=== PATIENT | male | born 1965 | race Caucasian/White ===

== ENCOUNTER 2019-01-06 09:11 | Inpatient (IN) ==
[2019-01-06] MEDS ORDERED: ASPIRIN PO ONE (09:18)
[2019-01-06] MEDS ORDERED: NITROGLYCERIN SL ONE (09:35)
[2019-01-06] MEDS ORDERED: ZOFRAN IV ONE (09:41)
[2019-01-06 10:10] LABS: BASO# 0.04 X1000 (0.0-0.2); BASO% 0.3 % (0.0-0.8); EOS# 0.28 X1000 (0.0-0.7); EOS% 1.9 % (0.0-10.0); HEMATOCRIT 34.8 % (42.0-52.0); HEMOGLOBIN 11.3 g/dL (14.0-18.0); IMM GRAN# 0.14 X1000 (0.0-0.04); LYMPH# 0.72 X1000 (1.2-3.4); MCH 28.9 PG (27-31); MCHC 32.5 g/dL (33-37); MONO# 0.54 X1000 (0.11-0.59); MONO% 3.7 % (1.7-9.3); MPV 10.6 FL (7.4-10.4); NEUT% 88.1 % (42.2-75.2); PLT 233 X1000 (130-400); RBC 3.91 XMIL (4.7-6.1); RDW 14.4 % (11.5-14.5); WBC 14.52 X1000 (4.8-10.8)
--- NOTE | 2019-01-06 10:11 | Diag Imaging Result Doc PS360 ---
EXAM: CHEST-2 VIEWS - 01/06/2019 HISTORY: cp/sob TECHNIQUE: Chest two views COMPARISON: 06/09/2018 FINDINGS: Heart size is normal. There is mild tortuosity of the thoracic aorta. There are apparent COPD changes. There is increased prominence of perihilar markings on the right which may relate to COPD exacerbation and/or bronchopneumonia. There is no dense consolidation, pleural effusion, or pneumothorax identified. IMPRESSION: Increased prominence of perihilar markings on the right. This may relate to COPD exacerbation and/or bronchopneumonia. Electronically signed by Larry Caldwell 01/06/2019 10:09 AM
[2019-01-06] MEDS ORDERED: DUONEB (A & A) INH ONE (10:18)
--- NOTE | 2019-01-06 10:24 | EKG Report ---
Test Performed on : 01/06/2019 09:20:59 AM Test Reason : cp/sob Blood Pressure : / mmHG Vent. Rate : 065 BPM Atrial Rate : 065 BPM P-R Int : 136 ms QRS Dur : 150 ms QT Int : 428 ms P-R-T Axes : 071 079 058 degrees QTc Int : 445 ms Normal sinus rhythm. Right bundle branch block Abnormal ECG When compared with ECG of 09-JUN-2018 17:56, Right bundle branch block is now present Unconfirmed Result
[2019-01-06 10:27] LABS: AGAP 10; ALBUMIN 2.9 g/dL (3.5-5.0); ALKALINE PHOSPHATASE 63 U/L (32-122); BUN 18 mg/dL (8-22); CALCIUM 8.8 mg/dL (8.8-10.2); CHLORIDE 108 mmol/L (98-107); CK PROFILE 67 U/L (24-204); COSMO 289; CREATININE 0.8 mg/dL (0.7-1.2); ESTIMATED GFR > 60; GLUCOSE 133 mg/dL (70-104); GOT 20 U/L (10-34); GPT 29 U/L (10-44); INR 0.95; POTASSIUM 4.4 mmol/L (3.5-5.1); PROTIME 13.2 Seconds (11.0-16.0); PTT 31.2 Seconds (22.3-41.8); SODIUM 143 mmol/L (136-145); TCO2 25 mmol/L (25-35); TOTAL BILIRUBIN < 0.15 mg/dL (0.20-1.00); TOTAL PROTEIN 4.9 g/dL (6.3-8.3)
[2019-01-06] MEDS ORDERED: ROCEPHIN 1 GM in NS 50 ML IV ONE (11:02)
[2019-01-06] MEDS ORDERED: ZITHROMAX PO ONE (11:03)
[2019-01-06] MEDS: DUONEB (A & A) INH SCH ×4 (12:00→23:20)
[2019-01-06] MEDS ORDERED: ZOFRAN IV PRN (12:26)
[2019-01-06] MEDS ORDERED: DUONEB (A & A) INH PRN (12:26)
[2019-01-06] MEDS ORDERED: TYLENOL PO PRN (12:26)
--- NOTE | 2019-01-06 13:28 | HISTORY AND PHYSICAL ---
PRIMARY CARE PROVIDER: None. CHIEF COMPLAINT: Chest pain, shortness of breath for 3 days. HISTORY OF PRESENT ILLNESS: Mr. Fernandez is a 53-year-old male who reports a past medical history of [place] years ago, who received no stents. He claims it was secondary to arthritis flare. Arthritis, hypertension, constipation, COPD on imaging, reports bilateral lower extremity edema for years, however, not currently edematous, fall off of a roof from about 55 feet, where he received several orthopedic type surgeries on lower and upper extremities. Reported for 3 days, chest pain and shortness of breath that was unlike his [place] years ago. There was no fever. Positive for chills. Positive for cough. He woke up yesterday and vomited after he had been sleeping. He has had heartburn for 2 days. Also, reports history of numerous pneumonias in the past. This chest pain was pressure-like on the left side, but again not like his [place] pain. He came to the ED to be evaluated, was found to have COPD and bronchopneumonia. First set of cardiac enzymes were negative. EKG does not show any ST-T wave changes. We will admit him to [facility] Telemetry. Continue treatment for COPD and bronchopneumonia. PAST MEDICAL HISTORY: 1. [place]. 2. Arthritis. 3. Hypertension. 4. New diagnosis of COPD. 5. Constipation. 6. Reported bilateral lower extremity edema for years. PAST SURGICAL HISTORY: Several Orthopedics on bilateral upper and lower extremities. REVIEW OF SYSTEMS: Twelve-point review of systems completely negative except for those mentioned in HPI. FAMILY HISTORY: Mother with cervical cancer from talcum powder. 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 He quit smoking a couple months ago. He was a 1 pack per day smoker for 40 years. He is not . He does have children. No alcohol or illicit drug use. HOME MEDICATIONS: None. ALLERGIES: None. PHYSICAL EXAMINATION: VITAL SIGNS: Temperature is 97.4 degrees, heart rate 67, respirations 16, blood pressure 128/89, O2 is 98% on room air. GENERAL: Mr. Patel is a 53-year-old male who is lying in the bed flat, in no acute distress. HEENT: Atraumatic, normocephalic. PERRL. NECK: Supple. Trachea midline. CARDIOVASCULAR: S1, S2 appreciated. No murmurs, gallops, or rubs noted. RESPIRATORY: Lung sounds clear bilaterally. GASTROINTESTINAL: Soft, nontender, nondistended. Positive bowel sounds 4 quadrants. EXTREMITIES: Lower extremities negative for edema. I could not assess pedal pulses secondary to the patient having boots on. NEUROLOGIC: No focal deficits noted. LABORATORY DATA: White count 14, hemoglobin and hematocrit 11 and 34. Sodium 143, potassium 4.4, BUN 18, creatinine 0.8. Troponin less than 0.010. DIAGNOSTIC DATA: Chest x-ray COPD and bronchopneumonia. EKG normal sinus rhythm with a right bundle branch, 65 beats per minute. ASSESSMENT AND PLAN: 1. Bronchopneumonia. We will continue with IV antibiotics, bronchodilators, supplemental O2, aggressive pulmonary toilet. 2. Chronic obstructive pulmonary disease. Does not appear to be an exacerbation, if he is it is mild. Again, we will continue with supplemental O2, bronchodilators, aggressive pulmonary toilet, IV antibiotics. 3. Chest pain. Does not appear to be cardiac in nature. First set of cardiac enzymes were negative. We will continue to trend 2 more sets. He does state that the left-sided pressure was not like his previous [place]. 4. Arthritis. 5. Hypertension not on any home medications. 6. Constipation. 7. Complaint of bilateral lower extremity edema for years. However, he has no evidence of edema now. 8. Further recommendation to follow physician evaluation, laboratory and diagnostic data. Dictated by KATHERYN Briscoe for Russell Fonseca MD cc: Russell Fonseca MD
[2019-01-06] MEDS: NS 1,000 ML IV SCH (16:07)
--- NOTE | 2019-01-06 19:36 | HISTORY AND PHYSICAL ---
ADDENDUM: Patient presented to the hospital with increased cough, congestion, felt as though he had the flu. He was having some chest pain but notes that it was worse when he took a deep breath. He was diagnosed with pneumonia. We are going to admit him to the hospital, place him on antibiotics, breathing treatments, oxygen and we will follow. Please see full note. cc: Russell Fonseca MD
[2019-01-06] MEDS: SYMBICORT 160/4.5 MICROGM INHALER INH SCH (20:02)
[2019-01-06] MEDS: NICODERM PATCH TD PRN (21:48)
[2019-01-07] MEDS ORDERED: FLU VACCINE IM ONE (01:33)
[2019-01-07] MEDS ORDERED: PNEUMOVAX 23 IM ONE (01:34)
[2019-01-07] MEDS: DUONEB (A & A) INH SCH ×6 (03:23→23:57)
[2019-01-07] MEDS: NS 1,000 ML IV SCH ×2 (04:46→17:55)
[2019-01-07 05:46] LABS: BASO# 0.02 X1000 (0.0-0.2); BASO% 0.2 % (0.0-0.8); EOS% 2.2 % (0.0-10.0); HEMATOCRIT 31.8 % (42.0-52.0); HEMOGLOBIN 10.1 g/dL (14.0-18.0); IMM GRAN# 0.09 X1000 (0.0-0.04); LYMPH# 0.93 X1000 (1.2-3.4); LYMPH% 10.2 % (20.5-51.1); MCH 28.5 PG (27-31); MCHC 31.8 g/dL (33-37); MCV 89.6 FL (81-99); MONO# 0.57 X1000 (0.11-0.59); MONO% 6.2 % (1.7-9.3); MPV 10.1 FL (7.4-10.4); NEUT# 7.32 X1000 (1.4-6.5); NEUT% 80.2 % (42.2-75.2); PLT 207 X1000 (130-400); RBC 3.55 XMIL (4.7-6.1); RDW 14.4 % (11.5-14.5); WBC 9.13 X1000 (4.8-10.8)
[2019-01-07 06:19] LABS: AGAP 10; ALBUMIN 2.4 g/dL (3.5-5.0); ALKALINE PHOSPHATASE 54 U/L (32-122); BUN 22 mg/dL (8-22); CALCIUM 8.5 mg/dL (8.8-10.2); CHLORIDE 111 mmol/L (98-107); COSMO 293; CREATININE 0.7 mg/dL (0.7-1.2); ESTIMATED GFR > 60; GLUCOSE 148 mg/dL (70-104); GOT 13 U/L (10-34); GPT 21 U/L (10-44); POTASSIUM 3.3 mmol/L (3.5-5.1); SODIUM 144 mmol/L (136-145); TCO2 23 mmol/L (25-35); TOTAL BILIRUBIN < 0.15 mg/dL (0.20-1.00); TOTAL PROTEIN 4.8 g/dL (6.3-8.3)
[2019-01-07] MEDS: SYMBICORT 160/4.5 MICROGM INHALER INH SCH ×2 (08:12→20:09)
--- NOTE | 2019-01-07 08:17 | Diag Imaging Result Doc PS360 ---
EXAM: CHEST-PORTABLE HISTORY: short of breath TECHNIQUE: Single view of the chest was performed portably. COMPARISON: 01/06/2019 FINDINGS: Heart size is within normal limits. There is a less optimal inspiratory result. There are increasing bilateral alveolar infiltrates suspicious for worsening bilateral pneumonia. No pleural effusions. No pneumothorax is appreciated. IMPRESSION: Worsening bilateral infiltrates suspicious for bilateral pneumonia. Electronically signed by Renetta Way 01/07/2019 8:15 AM
[2019-01-07] MEDS ORDERED: KLOR-CON PO ONE (08:36)
[2019-01-07] MEDS: ZITHROMAX PO SCH (09:34)
[2019-01-07] MEDS: ROCEPHIN 1 GM in NS 50 ML IV SCH (11:05)
[2019-01-07] MEDS ORDERED: PRINIVIL PO ONE (18:39)
--- NOTE | 2019-01-07 21:32 | EKG Report ---
Test Performed on : 01/07/2019 9:24:47 PM Test Reason : HBP Blood Pressure : / mmHG Vent. Rate : 074 BPM Atrial Rate : 074 BPM P-R Int : 132 ms QRS Dur : 142 ms QT Int : 410 ms P-R-T Axes : 057 069 048 degrees QTc Int : 455 ms Normal sinus rhythm. Possible Left atrial enlargement Right bundle branch block Abnormal ECG When compared with ECG of 06-JAN-2019 09:20, (Unconfirmed) No significant change was found Unconfirmed Result
[2019-01-07] MEDS: NORCO-7.5 PO PRN (21:37)
--- NOTE | 2019-01-07 23:00 | PROGRESS NOTE ---
DATE: 01/07/2019 SUBJECTIVE: The patient notes that his chest pain has resolved. His shortness of breath is improving. He notes that his cough is improving. He is actually starting to feel better. OBJECTIVE: Temperature 98, pulse 78, respiratory rate 18, BP 155/87.General: The patient is awake, currently in mild respiratory distress. Very pleasant to talk with. HEENT: Normocephalic. Neck supple. Cardiovascular: Regular rate. Chest: Minimal wheezing, much improvement. Good air movement. Abdomen soft, nondistended. Extremities: Moves all extremities. Neurologic: No changes. ASSESSMENT: 1. Pneumonia. 2. Chronic obstructive pulmonary disease with exacerbation. 3. Leukocytosis, resolved. 4. Hypokalemia. 5. Chronic arthritis. 6. Hypertension. 7. Constipation. PLAN: We are going to continue the patient on azithromycin and Rocephin. Replace potassium. Hopefully his symptoms will continue to improve and he can discharge home tomorrow. cc: Russell Fonseca MD
[2019-01-08] MEDS: DUONEB (A & A) INH SCH ×5 (04:15→19:06)
[2019-01-08] MEDS: NORCO-7.5 PO PRN ×3 (04:59→20:16)
[2019-01-08 05:27] LABS: HEMATOCRIT 32.7 % (42.0-52.0); HEMOGLOBIN 10.6 g/dL (14.0-18.0); MCH 28.7 PG (27-31); MCHC 32.4 g/dL (33-37); MCV 88.6 FL (81-99); RBC 3.69 XMIL (4.7-6.1); RDW 13.9 % (11.5-14.5); WBC 7.41 X1000 (4.8-10.8)
[2019-01-08] MEDS: NS 1,000 ML IV SCH (05:39)
[2019-01-08] MEDS: PRINIVIL PO SCH ×2 (05:39→09:30)
[2019-01-08] MEDS: NICODERM PATCH TD PRN (05:41)
[2019-01-08 05:48] LABS: AGAP 9; ALBUMIN 2.3 g/dL (3.5-5.0); ALKALINE PHOSPHATASE 59 U/L (32-122); BUN 12 mg/dL (8-22); CALCIUM 8.3 mg/dL (8.8-10.2); CHLORIDE 108 mmol/L (98-107); COSMO 279; CREATININE 0.7 mg/dL (0.7-1.2); ESTIMATED GFR > 60; GLUCOSE 99 mg/dL (70-104); GOT 16 U/L (10-34); GPT 24 U/L (10-44); MAGNESIUM 1.3 mg/dL (1.5-2.7); POTASSIUM 3.8 mmol/L (3.5-5.1); SODIUM 140 mmol/L (136-145); TCO2 23 mmol/L (25-35); TOTAL BILIRUBIN < 0.15 mg/dL (0.20-1.00)
[2019-01-08] MEDS ORDERED: APRESOLINE IV ONE (06:56)
[2019-01-08] MEDS ORDERED: MAGNESIUM SULFATE 2 GM/S.W.I. 2 GM/50 ML IVPB IV ONE (07:15)
[2019-01-08] MEDS: SYMBICORT 160/4.5 MICROGM INHALER INH SCH ×2 (08:32→19:06)
[2019-01-08] MEDS: APRESOLINE PO SCH ×2 (09:25→20:17)
[2019-01-08] MEDS: ZITHROMAX PO SCH (09:25)
[2019-01-08] MEDS: ROCEPHIN 1 GM in NS 50 ML IV SCH (11:00)
--- NOTE | 2019-01-08 13:40 | Diag Imaging Result Doc PS360 ---
EXAM: CHEST-2 VIEWS HISTORY: chest pain TECHNIQUE: Two views COMPARISON: 01/07/2019 FINDINGS: The lungs are well expanded. The heart is not enlarged. The vessels are not distended. The prior infiltrates are slightly less pronounced. No pleural effusions. IMPRESSION: Mild interval improvement Electronically signed by Fidel Acosta 01/08/2019 1:38 PM
--- NOTE | 2019-01-08 14:33 | EKG Report ---
Test Performed on : 01/08/2019 11:34:24 AM Test Reason : chest pain Blood Pressure : / mmHG Vent. Rate : 080 BPM Atrial Rate : 080 BPM P-R Int : 132 ms QRS Dur : 142 ms QT Int : 422 ms P-R-T Axes : 071 079 057 degrees QTc Int : 486 ms Sinus rhythm. with occasional premature ventricular complexes. Right bundle branch block Abnormal ECG When compared with ECG of 07-JAN-2019 21:24, (Unconfirmed) premature ventricular complexes. are now present Unconfirmed Result
--- NOTE | 2019-01-08 22:41 | PROGRESS NOTE ---
DATE: 01/08/2019 SUBJECTIVE: Patient notes that he is still having some cough and congestion. He had elevated blood pressure last night and felt as though his heart has been racing at times. He denies any fevers or chills. PHYSICAL EXAMINATION: Vital signs: Temperature 97.8, pulse 73, BP 163/114. General: Patient is in mild respiratory distress, pleasant to talk with. HEENT: Normocephalic. Neck: Supple. Cardiovascular: Regular rate. No murmurs. Chest: Clear. Abdomen: Soft. Extremities: Moves all extremities. ASSESSMENT: 1. Malignant hypertension. 2. Leukocytosis, resolved. 3. Bronchial pneumonia. 4. Chronic obstructive pulmonary disease with exacerbation. 5. Chest pain, resolved. 6. Palpitations. PLAN: We are going to check an EKG. Continue to follow. Watch patient in the hospital. Adjust blood pressure medications. Continue antibiotics. If his blood pressure and symptoms improve, we can discharge home tomorrow. cc: Russell Fonseca MD
[2019-01-09] MEDS: DUONEB (A & A) INH SCH ×3 (00:03→08:01)
[2019-01-09] MEDS: NORCO-7.5 PO PRN ×2 (02:26→08:24)
[2019-01-09 05:55] LABS: HEMOGLOBIN 10.4 g/dL (14.0-18.0); MCH 28.5 PG (27-31); MCHC 32.5 g/dL (33-37); MCV 87.7 FL (81-99); MPV 10.2 FL (7.4-10.4); RBC 3.65 XMIL (4.7-6.1); RDW 13.3 % (11.5-14.5); WBC 10.53 X1000 (4.8-10.8)
[2019-01-09 06:14] LABS: AGAP 10; ALBUMIN 2.4 g/dL (3.5-5.0); ALKALINE PHOSPHATASE 70 U/L (32-122); BUN 13 mg/dL (8-22); CALCIUM 8.6 mg/dL (8.8-10.2); CHLORIDE 104 mmol/L (98-107); COSMO 275; CREATININE 0.7 mg/dL (0.7-1.2); ESTIMATED GFR > 60; GLUCOSE 125 mg/dL (70-104); GOT 21 U/L (10-34); GPT 33 U/L (10-44); MAGNESIUM 1.6 mg/dL (1.5-2.7); SODIUM 137 mmol/L (136-145); TCO2 23 mmol/L (25-35); TOTAL PROTEIN 5.2 g/dL (6.3-8.3)
[2019-01-09] MEDS: SYMBICORT 160/4.5 MICROGM INHALER INH SCH (08:02)
[2019-01-09 08:13] VITALS: BP 138/76
[2019-01-09] MEDS: APRESOLINE PO SCH (08:25)
[2019-01-09] MEDS: ZITHROMAX PO SCH (08:25)
[2019-01-09] MEDS ORDERED: PRINIVIL PO SCH (09:00)
--- NOTE | 2019-01-09 20:51 | DISCHARGE SUMMARY ---
ADMISSION DATE: 01/06/2019 DISCHARGE DATE: 01/09/2019 CONSULTATIONS: None. PERTINENT PROCEDURES: First chest x-ray increased prominence of perihilar markings on the right, this may relate to COPD exacerbation and/or bronchopneumonia. Followup chest x-ray showed worsening bilateral infiltrates suspicious for bilateral pneumonia. Third chest x-ray showed interval improvement. DISCHARGE DIAGNOSES: 1. Malignant hypertension, resolved. 2. Hypertension. We did increase the patient's lisinopril and added Apresoline to his regimen. 3. Leukocytosis resolved. 4. Probable pneumonia improved. 5. Chronic obstructive pulmonary disease with exacerbation, improved. 6. Chest pain, resolved. 7. Palpitations, resolved. HOSPITAL COURSE: Briefly, Mr. Patel is a 53-year-old gentleman who carries a past medical history of [place] several years ago. He did not receive any stents, arthritis, hypertension, new diagnosis of COPD, constipation, came to the ED reporting 3 days of chest pain and shortness of breath that was unlike his [place] years ago. There was no fever. He was positive for chills. Positive for a cough, as well as 1 time vomiting. He also reports history of numerous pneumonias in the past. Workup in the ED, he was found to have COPD and bronchopneumonia. All sets of cardiac enzymes were negative. [facility] and continued treatment for COPD exacerbation and bronchopneumonia. He did develop some malignant hypertension. We increased his home lisinopril and added Apresoline to his regimen. He has improved throughout the course of this hospitalization and is appropriate for discharge home today. We will send him home with bronchodilators and nebulizers. He is apparently oxygenating well on room air. VITAL SIGNS AT THE TIME OF DISCHARGE: Temperature 97.9, heart rate 76, respirations 18, blood pressure 138/76, O2 100% on room air. DISCHARGE DIET: Healthy heart. DISCHARGE MEDICATIONS: 1. Apresoline 25 mg p.o. b.i.d. 2. DuoNeb 3 mL inhaled q 4 hours p.r.n. 3. NicoDerm 21 mg patch TD p.r.n. 4. Omnicef 300 mg p.o. b.i.d. for 10 capsules. 5. Prinivil 20 mg p.o. daily. 6. Symbicort 2 puffs inhaled b.i.d. 7. Zithromax 500 mg p.o. daily for 2 tablets. FOLLOWUP: Ms. Patel is being discharged back home to self care. He is to follow up wit a primary care provider with a list that has been provided to him. He is to all medications as prescribed. He can return to the ED or call 911 for any worsening symptoms. Dictated by KATHERYN Briscoe for Russell Fonseca MD cc: Russell Fonseca MD
--- NOTE | 2019-01-10 02:54 | DISCHARGE SUMMARY ---
ADMISSION DATE: 01/06/2019 DISCHARGE DATE: 01/09/2019 DISCHARGE DIAGNOSES: 1. Chronic obstructive pulmonary disease with exacerbation. 2. Pneumonia. 3. Hypertension, poor home control. 4. Hypokalemia. 5. Leukocytosis. CONSULTATIONS: None. PROCEDURES: None. BRIEF HOSPITAL COURSE: Patient was admitted to the hospital secondary to pneumonia. He was placed on antibiotics, breathing treatments, oxygen. While he was in the hospital, his pulmonary status continued to improve slowly. Also was noted to have markedly elevated blood pressures 160s over 110 on several different occasions. We started him on lisinopril 20 and ultimately increased to lisinopril 40 prior to discharge. On discharge, patient is awake, alert. He is in no distress. Overall, he notes that he is feeling better. His breathing is better. He denies any chest pains, headaches, or focal weakness. DISPOSITION: Patient will be discharged home. He will follow up outpatient with treatment facility of choice. Discharge him with antibiotics. He has a nebulizer at home and with lisinopril 40. TIME: Greater than 30 minutes was spent in total care. cc: Russell Fonseca MD
--- NOTE | 2019-01-11 21:13 | PROVIDER DOCUMENTATION ---
This chart was entered by Janna Toure Scribe, acting as scribe for Derrek Carlson MD. HPI-Chest Pain - General Chief Complaint: Chest Pain Stated Complaint: CP/SOB Time Seen by Provider: 01/06/19 09:24 Source: patient, family Allergies/Adverse Reactions: Patient Allergies Allergy/AdvReac Type Severity Reaction Status Date / Time No Known Allergies Allergy Verified 01/06/19 09:16 Home Medications: Home Medication List Medication Instructions Recorded Confirmed Last Taken Type Albuterol 2.5MG/Ipratrop 0.5MG 3 ml INH Q4H PRN PRN #120 neb 01/09/19 Unknown Rx [Duoneb (A & A)] Azithromycin [Zithromax] 500 mg PO DAILY #2 tab 01/09/19 Unknown Rx Budesonide/Formoterol Inhaler 2 puff INH RTBID #1 inhaler 01/09/19 Unknown Rx [Symbicort 160/4.5 Microgm Inhaler] CefDINIR [Omnicef] 300 mg PO BID #10 cap 01/09/19 Unknown Rx Hydralazine [Apresoline] 25 mg PO BID #60 tab 01/09/19 Unknown Rx LISINOpril [Prinivil] 20 mg PO DAILY #30 tab 01/09/19 Unknown Rx Nicotine Patch [Nicoderm Patch] 21 mg TD DAILY PRN PRN #30 01/09/19 Unknown Rx patch.td24 - History of Present Illness-CP Nature of Presenting Problem: 53 yowm presents to the ed with c/o chest pain with sob, n/v and diaphoresis with acute onset 3 days prior. pt sts sx are intermittent and sts since 0200am this morning sx have became worse at 0200am Location: reports: other (left anterior) Chest Pain Radiation: reports: no radiation Quality of Pain: reports: aching Severity in ED: moderate Onset/Duration: 3 days ago Timing: still present Context/Activities at Onset: reports: light activity Modifying Factors: improves with: nothing Associated Symptoms: reports: diaphoresis, nausea, shortness of breath, vomiting . denies: fever/chills Nitro Today/Relief: 0.4 mg x 1, provided by ED, mild relief Aspirin Treatment Today: 325 mg x 1, provided by ED Prior Chest Pain/Cardiac Workup: reports: heart attack Similar Symptoms Previously?: Yes Recently Seen Here or By Another Healthcare Provider: No Review of Systems - Adult - REVIEW OF SYSTEMS - ADULT Constitutional: denies: chills, fever Eyes: reports: no symptoms reported Ears, Nose, Mouth & Throat: reports: no symptoms reported Cardiovascular: reports: see HPI, chest pain. denies: edema, palpitations Respiratory: reports: see HPI, shortness of breath, wheezing. denies: cough Gastrointestinal: reports: nausea, vomiting Genitourinary: reports: no symptoms reported Musculoskeletal: reports: no symptoms reported Integumentary: reports: no symptoms reported Neurological: denies: dizziness/vertigo, headache/migraines Psychiatric: reports: no symptoms reported Endocrine: reports: no symptoms reported Hematologic/Lymphatic: reports: no symptoms reported Allergic/Immunologic: reports: no symptoms reported All Other Systems: Reviewed and Negative Past History - Adult - PAST MEDICAL HISTORY-ADULT Review of Records: reports: Old Records Reviewed, Nursing Assessment Review, Medications Reviewed, Social history reviewed & non-contributory. Major Childhood Illnesses: reports: denies history Cardiovascular: reports: [place] Respiratory: reports: denies history Gastrointestinal: reports: denies history Genitourinary: reports: denies history Musculoskeletal: reports: arthritis, chronic pain Neurological: reports: denies history Psychiatric: reports: denies history Endocrine/Immune: reports: denies history Other Conditions: reports: denies history - PRIOR SURGERIES/PROCEDURES Surgical/Procedure History: reports: reviewed, not pertinent - IMMUNIZATION STATUS Childhood Immunizations: See Nurse Assessment Flu Vaccine: See Nurse Assessment - FAMILY HISTORY Family History: reviewed, not pertinent - SOCIAL HISTORY Smoking: quit less than 1 year Substance Use: alcohol, marijuana Alcohol Use Frequency: occasionally Living Situation: family Physical Exam-General - PHYSICAL EXAM-ADULT Initial Vital Signs Reviewed: Yes (BP 163/108) - CONSTITUTIONAL General Appearance: alert, mild distress, obese - EYES Eyes: PERRL/EOMI, pink conjunctivae - HEAD, EARS, NOSE, MOUTH & THROAT HENMT: normocephalic/atraumatic, moist mucous membranes, normal ENT inspection - NECK Neck: non-tender, full range of motion, supple, normal inspection - RESPIRATORY Respiratory: chest non-tender, lungs clear, normal breath sounds - CARDIOVASCULAR Cardiovascular: normal peripheral pulses, regular rate, rhythm, other (sts cp is 7/10) - CHEST (BREASTS) Chest/Breast: deferred - GASTROINTESTINAL (ABDOMEN) Abdominal Exam: normal bowel sounds, non tender, soft - GENITOURINARY Male Genitalia: deferred Rectal Exam: deferred Hemoccult Exam: deferred - LYMPHATIC Lymphatic: no adenopathy - MUSCULOSKELETAL Back Exam: normal inspection, no CVA tenderness, no vertebral tenderness Extremity: normal range of motion, non-tender, normal gait, normal inspection - SKIN Integumentary: normal color, normal turgor, warm/dry - NEUROLOGIC Neurologic: grossly normal - PSYCHIATRIC Psych/Mental Status: normal mood/affect, normal thought content, normal thought process, oriented x 3 - HEART Score HEART Score: History: Moderately Suspicious HEART Score: ECG: Non-Specific Repolarization Disturbance/LBBB/PM HEART Score: Age: 45-65 Years HEART Score: Risk Factors for Atherosclerotic Disease: > or = 3 Risk Factors or History of Atherosclerotic Disease HEART Score: Troponin: < or = Normal Limit Total HEART Score:: 5 Progress - PLAN OF CARE/RESULTS Progress/Plan/Lab Results: Orders Category Date Time Status Admit [place] Routine AdmDCTranf 01/06/19 12:26 Active Activity - Up with Assistance ORDERED Care 01/06/19 12:26 Active Apply Mechanical Device [QM] ORDERED Care 01/06/19 12:26 Active Cardiac Monitoring DIRECTED Care 01/06/19 09:18 Completed Elevate Head of Bed DIRECTED Care 01/06/19 12:26 Active Encourage Fluids DIRECTED Care 01/06/19 12:26 Active Intake and Output-Strict ORDERED Care 01/06/19 12:26 Active Nursing- Assist w/ IS as order ORDERED Care 01/06/19 12:26 Active Nursing- Assist w/ IS as order ORDERED Care 01/06/19 12:26 Completed Oxygen Therapy- ED Nursing DIRECTED Care 01/06/19 09:18 Completed Saline Loc DIRECTED Care 01/06/19 12:26 Completed Saline Loc NOW Care 01/06/19 09:18 Completed Turn, Cough and Deep Breathe Q2HR Care 01/06/19 12:26 Completed Turn, Cough and Deep Breathe Q4HR.AWAKE Care 01/06/19 12:26 Active Vital Signs Order Q 4-HR ASSESS Care 01/06/19 12:26 Active Z-Document. for Tele Applied ORDERED Care 01/06/19 12:26 Completed Heart Healthy Diet Diet 01/06/19 12:27 Completed CHEST-2 VIEWS [RAD] Stat Exams 01/06/19 09:18 Completed CHEST-PORTABLE [RAD] Routine Exams 01/07/19 06:00 Completed BLOOD CULTURE [BLDCUL] Stat Lab 01/06/19 11:02 Results CBC WITH DIFF [HEME] Routine Lab 01/07/19 05:29 Completed CBC WITH ELECTRONIC DIFF [HEME] Stat Lab 01/06/19 09:58 Completed CK PROFILE [SP CHEM] Stat Lab 01/06/19 09:58 Completed COMPREHENSIVE METABOLIC PANEL [CHEM] Routine Lab 01/07/19 05:29 Completed COMPREHENSIVE METABOLIC PANEL [CHEM] Stat Lab 01/06/19 09:58 Completed D-DIMER [COAG] Stat Lab 01/06/19 09:50 Completed PRO B-NATRIURETIC PEPTIDE Stat Lab 01/06/19 09:58 Completed PROTIME WITH INR [COAG] Stat Lab 01/06/19 09:58 Completed PTT [COAG] Stat Lab 01/06/19 09:58 Completed TROPONIN T Q8HR Lab 01/06/19 12:56 Completed TROPONIN T Q8HR Lab 01/06/19 20:40 Completed TROPONIN T Stat Lab 01/06/19 09:58 Completed 0.9% Sodium Chloride Inj [Ns] 1,000 ml Med 01/06/19 12:26 Discontinued IV 75 mls/hr Acetaminophen [Tylenol] Med 01/06/19 12:26 Discontinued 650 mg PO Q6H PRN PRN Albuterol 2.5MG/Ipratrop 0.5MG [Duoneb (A & A)] Med 01/06/19 10:18 Discontinued 3 ml INH NOW ONE Albuterol 2.5MG/Ipratrop 0.5MG [Duoneb (A & A)] Med 01/06/19 12:26 Discontinued 3 ml INH Q2H PRN PRN Albuterol 2.5MG/Ipratrop 0.5MG [Duoneb (A & A)] Med 01/06/19 12:26 Discontinued 3 ml INH RTQ4H Aspirin Med 01/06/19 09:18 Discontinued 325 mg PO NOW ONE Azithromycin [Zithromax] Med 01/07/19 09:00 Discontinued 500 mg PO DAILY Azithromycin [Zithromax] Med 01/06/19 11:03 Discontinued 500 mg PO NOW ONE CefTRIAXONE [Rocephin] 1 gm Med 01/06/19 11:02 Discontinued 0.9% Sodium Chloride Inj [Ns] 50 ml IV NOW CefTRIAXONE [Rocephin] 1 gm Med 01/07/19 11:00 Discontinued 0.9% Sodium Chloride Inj [Ns] 50 ml IV Q24H Hydrocodone/APAP 7.5 mg/325 mg [[place]-7.5] Med 01/06/19 12:26 Discontinued 1 each PO Q6H PRN PRN Nitroglycerin Sl [Nitroglycerin] Med 01/06/19 09:35 Discontinued 0.4 mg SL NOW ONE Ondansetron [Zofran] Med 01/06/19 09:41 Discontinued 4 mg IV NOW ONE Ondansetron [Zofran] Med 01/06/19 12:26 Discontinued 4 mg IV Q4H PRN PRN Aerosol Treatments Routine [facility] 01/06/19 10:18 Completed Aerosol Treatments Routine [facility] 01/06/19 12:26 Completed Aerosol Treatments Stat Ot 01/06/19 10:18 Completed Aerosol Treatments Stat [facility] 01/06/19 12:26 Completed Incentive Spirometer Q4HR.AWAKE [facility] 01/06/19 13:00 Completed Incentive Spirometer Q4HR.AWAKE [facility] 01/06/19 17:00 Completed Incentive Spirometer Q4HR.AWAKE [facility] 01/06/19 21:00 Completed Incentive Spirometer Q4HR.AWAKE [facility] 01/07/19 01:00 Completed Incentive Spirometer Q4HR.AWAKE [facility] 01/07/19 05:00 Completed Incentive Spirometer Q4HR.AWAKE [facility] 01/07/19 09:00 Completed Incentive Spirometer Routine [facility] 01/06/19 12:26 Completed Oxygen Device Routine [facility] 01/06/19 12:26 Completed Peak Flow BID [facility] 01/06/19 21:00 Completed Peak Flow BID [facility] 01/07/19 09:00 Completed Pulse Oximetry Routine [facility] 01/06/19 12:26 Completed Telemetry [OM.EQ] Routine [facility] 01/06/19 12:26 Active EKG [EKG] Stat Ther 01/06/19 09:18 Draft Transfer/Admit Order [TRANSFER] Routine Transfer 01/06/19 11:13 Completed Result Diagrams: 01/09/19 05:35 01/09/19 05:35 - REASSESSMENT Reassessment #1 Time Reassessed: 10:16 Status: improving (CP DOWN FROM 08/18 TO 04/20. STILL FEELS DYSPNEIC. P OX 07% RM AIR. 138/ . INITAL EKG W/ RBBB, NO ST SEG CHANGES.) Reassessment #2 Time Reassessed: 11:06 Status: improving (SOB BETTER POST ALBUTEROL NEB, CP RESOLVED. TROP NL.) - EKG 1 Time of EKG reading by physician:: 09:20 EKG Read and Signed by:: Derrek Carlson EKG Interpretation (*Must complete 3 of following elements*): Abnormal Rate: 65 Rhythm: nsr [place]: normal QRS: RBB [place] Interval: normal ST Wave: normal - XRAY 1 XRAY: Bilateral XRAY Study: Chest Impression: See EMR Report (EXAM: CHEST-2 VIEWS - 01/06/2019 HISTORY: cp/sob TECHNIQUE: Chest two views COMPARISON: 06/09/2018 FINDINGS: Heart size is normal. There is mild tortuosity of the thoracic aorta. There are apparent COPD changes. There is increased prominence of perihilar markings on the right which may relate to COPD exacerbation and/or bronchopneumonia. There is no dense consolidation, pleural effusion, or pneumothorax identified. IMPRESSION: Increased prominence of perihilar markings on the right. This may relate to COPD exacerbation and/or bronchopneumonia. Electronically signed by Larry Caldwell 01/06/2019 10:09 AM 01/06/19 1009 Interpreting Physician: Larry Caldwell MD Dictated Date/Time: 01/06/19 1006 cc: Derrek Carlson MD; None,PCP) - CONSULTS/PCP/HOSPITALIST Notification #1 *Consult/PCP/Hospitalist*: hospitalist dr chen Time Discussed: 11:01 Consult Disposition: Admit Departure - Departure Date of Disposition Decision: 01/06/19 Time of Disposition Decision: 11:07 DIAGNOSIS: Chest pain, RBBB, COPD with exacerbation, Bronchopneumonia Disposition: ADMITTED INPATIENT 09 Certified Medical Emergency: Emergent Condition: Stable - Critical Care Note This patient required my direct & personal management of CC.: No Attestation - Physician/ KRISTEN Attestation Patient care was provided by Advanced Practice Provider:: No The physician spent face to face time with patient:: Yes Advanced Practice Provider documentation review:: Supervising physician onsite and consulted in the evaluation and care of this patient. The physician did have a face to face encounter with the patient. This chart was documented by the indicated scribe, (Janna Toure Scribe) and accurately reflects the services I performed and decisions made by me, Derrek Carlson MD, as attested by the provider's signature.
== END 2019-01-09 11:20 | disposition home or self-care (01) | DRG 194 ==
LOC: P.ED 09:11 → P.MEDSURG 12:02
PROVIDERS: ATTEND Family Medicine